=== PATIENT | male | born 1990 | race Caucasian/White ===

== ENCOUNTER 2016-11-29 00:44 | Emergency (ER) | payer OTHER ==
[2016-11-29 03:01] VITALS: BP 134/104; PULSE 75; TEMP 98; BMI 25.0
--- NOTE | 2016-11-29 06:42 | PDOC ---
History of Present Illness - General History Source: Patient Exam Limitations: No Limitations - History of Present Illness Initial Comments: 11/29/16 06:42 The patient is a 26-year-old male with no significant past medical history, and presents to the emergency department with non-productive cough for 3 weeks. He reports that the cough is worsening and is more severe before he goes to sleep. He states he has tried robitussin and home remedies with no relief, and allergy medications with minimal relief. He also reports mild nausea. The patient works in [employer]. The patient denies chest pain, shortness of breath, headache and dizziness. The patient denies fever, chills, nausea, vomit, diarrhea and constipation. The patient denies dysuria, frequency, urgency and hematuria. Allergies: shrimp, shellfish Past Surgical History: correction for deviated septum Social History: current smoker, occasional alcohol and drug use <Melissa Medrano - Last Filed: 11/29/16 06:42> <Nguyen Lauren - Last Filed: 12/01/16 02:48> - General Chief Complaint: Respiratory Stated Complaint: COUGH Time Seen by Provider: 11/29/16 03:16 Past History <Melissa Medrano - Last Filed: 11/29/16 06:42> - Past Medical History Anemia: No Asthma: No Cancer: No Cardiac Disorders: No CVA: No COPD: No CHF: No Dementia: No Diabetes: No GI Disorders: No Disorders: No HTN: No Hypercholesterolemia: No Liver Disease: No Seizures: No Thyroid Disease: No - Psycho/Social/Smoking Cessation Hx Anxiety: No Suicidal Ideation: No Smoking History: Current some day smoker Have you smoked in the past 12 months: Yes Number of Cigarettes Smoked Daily: 5 Information on smoking cessation initiated: No 'Breaking Loose' booklet given: 01/28/12 Hx Alcohol Use: Yes (occasionally) Drug/Substance Use Hx: Yes (occasionally PCP) Substance Use Type: Marijuana <Nguyen Lauren - Last Filed: 12/01/16 02:48> - Past Medical History Allergies/Adverse Reactions: Allergies Allergy/AdvReac Type Severity Reaction Status Date / Time shellfish derived Allergy Verified 11/29/16 02:43 shrimp Allergy Verified 11/29/16 02:43 Home Medications: Ambulatory Orders Prednisone [Deltasone -] 40 mg PO DAILY #10 tablet 11/29/16 Review of Systems - Review of Systems Able to Perform ROS?: Yes Comments:: 11/29/16 06:43 CONSTITUTIONAL: Absent: fever, chills, diaphoresis, generalized weakness, malaise, loss of appetite HEENT: Absent: rhinorrhea, nasal congestion, throat pain, throat swelling, difficulty swallowing, mouth swelling, ear pain, eye pain, visual changes CARDIOVASCULAR: Absent: chest pain, syncope, palpitations, irregular heart rate, lightheadedness , peripheral edema RESPIRATORY: Present: (+) cough Absent: shortness of breath, dyspnea with exertion, orthopnea, wheezing, stridor , hemoptysis GASTROINTESTINAL: Present: (+) nausea Absent: abdominal pain, abdominal distension, vomiting, diarrhea, constipation, melena, hematochezia GENITOURINARY: Absent: dysuria, frequency, urgency, hesitancy, hematuria, flank pain, genital pain MUSCULOSKELETAL: Absent: myalgia, arthralgia, joint swelling SKIN: Absent: rash, itching, pallor HEMATOLOGIC/IMMUNOLOGIC: Absent: easy bleeding, easy bruising, lymphadenopathy, frequent infections ENDOCRINE: Absent: unexplained weight gain, unexplained weight loss, heat intolerance, cold intolerance NEUROLOGIC: Absent: headache, focal weakness or paresthesias, dizziness, unsteady gait, seizure, mental status changes, bladder or bowel incontinence PSYCHIATRIC: Absent: anxiety, depression, suicidal or homicidal ideation, hallucinations. <Melissa Medrano - Last Filed: 11/29/16 06:42> *Physical Exam - Vital Signs Last Vital Signs Temp Pulse Resp BP Pulse Ox 98.0 F 75 18 134/104 99 11/29/16 02:38 11/29/16 02:38 11/29/16 02:38 11/29/16 02:38 11/29/16 02:38 - Physical Exam Comments: 11/29/16 06:43 CONSTITUTIONAL: Absent: fever, chills, diaphoresis, generalized weakness, malaise, loss of appetite HEENT: Absent: rhinorrhea, nasal congestion, throat pain, throat swelling, difficulty swallowing, mouth swelling, ear pain, eye pain, visual changes CARDIOVASCULAR: Absent: chest pain, syncope, palpitations, irregular heart rate, lightheadedness , peripheral edema RESPIRATORY: Present: (+) cough Absent: shortness of breath, dyspnea with exertion, orthopnea, wheezing, stridor , hemoptysis GASTROINTESTINAL: Present: (+) nausea Absent: abdominal pain, abdominal distension, vomiting, diarrhea, constipation, melena, hematochezia GENITOURINARY: Absent: dysuria, frequency, urgency, hesitancy, hematuria, flank pain, genital pain MUSCULOSKELETAL: Absent: myalgia, arthralgia, joint swelling SKIN: Absent: rash, itching, pallor HEMATOLOGIC/IMMUNOLOGIC: Absent: easy bleeding, easy bruising, lymphadenopathy, frequent infections ENDOCRINE: Absent: unexplained weight gain, unexplained weight loss, heat intolerance, cold intolerance NEUROLOGIC: Absent: headache, focal weakness or paresthesias, dizziness, unsteady gait, seizure, mental status changes, bladder or bowel incontinence PSYCHIATRIC: Absent: anxiety, depression, suicidal or homicidal ideation, hallucinations. <Melissa Medrano - Last Filed: 11/29/16 06:42> - Vital Signs Last Vital Signs Temp Pulse Resp BP Pulse Ox 98.0 F 75 18 134/104 99 11/29/16 02:38 11/29/16 02:38 11/29/16 02:38 11/29/16 02:38 11/29/16 02:38 <Nguyen Lauren - Last Filed: 12/01/16 02:48> ED Treatment Course - RADIOLOGY Radiology Studies Ordered: Category Date Time Status CHEST PA & LAT [RAD] Stat Radiology 11/29/16 03:54 Taken <Nguyen Lauren - Last Filed: 12/01/16 02:48> Medical Decision Making - Medical Decision Making 12/01/16 02:47 PT COMES WITH COUGH X 3 WEEKS. HE IS A [employer] MACHINE, AND STATES THAT THE POLLEN AND GRASS MUGHT BE CAUSING THE COUGH. HE HAS NO ASTHM,. HOWEVER I WILL TREAT WITH SOME PREDNISONE. HE IS TO FOLLOW WITH HIS PMD. EXAM IS NORMAL; HE HAS NO FEVER; NO WHEEZE; CXR IS NORMAL; VITALS ARE NORMAL <Nguyen Lauren - Last Filed: 12/01/16 02:48> *DC/Admit/Observation/Transfer - Attestations Scribe Attestion: 11/29/16 06:44 Documentation prepared by Melissa Medrano, acting as medical sociologist for Nguyen Lauren MD. <Melissa Medrano - Last Filed: 11/29/16 06:42> - Discharge Dispostion Admit: No <Nguyen Lauren - Last Filed: 12/01/16 02:48> Diagnosis at time of Disposition: Cough - Discharge Dispostion Disposition: HOME Condition at time of disposition: Stable - Prescriptions Prescriptions: Prednisone [Deltasone -] 40 mg PO DAILY #10 tablet - Referrals Referrals: Lesly Maloney MD [Primary Care Provider] - - Patient Instructions Printed Discharge Instructions: Cough
[2016-11-29] MEDS ORDERED: predniSONE 20 MG TABLET (UD) PO ONE (06:45)
[2016-11-29] MEDS ORDERED: predniSONE 20 MG TABLET (UD) ONE (06:46)
== END 2016-11-29 06:52 | disposition home or self-care (01) ==
LOC: JER 00:44
DX: R05 Cough (principal); F17.210 Nicotine dependence, cigarettes, uncomplicated
CPT/HCPCS: 71020-TC; 99282-25

== ENCOUNTER 2018-01-23 21:42 | Emergency (ER) | payer SELFPAY ==
[2018-01-23 21:54] VITALS: BP 153/61; PULSE 78; TEMP 97.9; BMI 25.6
[2018-01-23] MEDS ORDERED: DIPHTH,PERTUSS(ACELL),TET 0.5 ML DISP.SYRIN IM ONE (22:28)
--- NOTE | 2018-01-23 22:34 | PDOC ---
History of Present Illness - General Chief Complaint: Laceration Stated Complaint: WOUND Time Seen by Provider: 01/23/18 21:57 History Source: Patient - History of Present Illness Timing/Duration: reports: yesterday Location: reports: hands Past History - Past Medical History Allergies/Adverse Reactions: Allergies Allergy/AdvReac Type Severity Reaction Status Date / Time shellfish derived Allergy Verified 01/23/18 21:50 shrimp Allergy Verified 01/23/18 21:50 Home Medications: Ambulatory Orders NK [No Known Home Medication] 01/23/18 Anemia: No Asthma: No Cancer: No Cardiac Disorders: No CVA: No COPD: No CHF: No Dementia: No Diabetes: No GI Disorders: No Disorders: No HTN: No Hypercholesterolemia: No Liver Disease: No Seizures: No Thyroid Disease: No Other medical history: Pt denies - Immunization History Immunization Up to Date: No - Suicide/Smoking/Psychosocial Hx Smoking History: Never smoked Have you smoked in the past 12 months: Yes Number of Cigarettes Smoked Daily: 5 Information on smoking cessation initiated: No 'Breaking Loose' booklet given: 01/28/12 Hx Alcohol Use: No Drug/Substance Use Hx: No Substance Use Type: None, Marijuana Review of Systems - Review of Systems Constitutional: No: Chills, Fever *Physical Exam - Vital Signs Last Vital Signs Temp Pulse Resp BP Pulse Ox 97.9 F 78 20 153/61 99 01/23/18 21:51 01/23/18 21:51 01/23/18 21:51 01/23/18 21:51 01/23/18 21:51 - Physical Exam General Appearance: Yes: Appropriately Dressed. No: Apparent Distress HEENT: positive: Normal Voice Neck: positive: Supple Respiratory/Chest: negative: Respiratory Distress Integumentary: positive: Dry, Warm, Other (~1-1/2 cm superficial lac to distal aspect of mid L palm, near wrist, FROMI to fingers, NVI) Neurologic: positive: Fully Oriented, Alert, Normal Mood/Affect Procedures - Laceration/Wound Repair Left Hand Wound Length: to 2.5 cm Wound Explored: clean Wound's Depth, Shape: superficial Irrigated w/ Saline: Yes Betadine Prep: Yes Anesthesia: 1% Lidocaine (5) Wound Repaired With: Sutures Suture Size/Type: 5:0, nylon Number of Sutures: 7 Sterile Dressing Applied: Yes Medical Decision Making - Medical Decision Making 01/23/18 22:30 27 yo M, no sig hx, here w/ L palm laceration after handling broken bottle last night, no sensory changes. Needs tetanus See exam Lac repair to L palm No complications -lac repair -tetanus -wound check as needed in 2 days *DC/Admit/Observation/Transfer Diagnosis at time of Disposition: Laceration - Discharge Dispostion Disposition: HOME Condition at time of disposition: Good - Referrals - Patient Instructions Printed Discharge Instructions: DI for Laceration Repair Additional Instructions: Keep dressing in place for at least 24 hours after which one can be opened to air. You can gently cleaned wound with mild soap and water after 24 hours to prevent crusting over the suture knots. You can also apply an antibiotic ointment twice a day until sutures are removed. Return for redness, discharge or fever Sutures are removed in 7 days - Post Discharge Activity
== END 2018-01-23 22:51 | disposition home or self-care (01) ==
LOC: JERFT 21:42
PROC: 0HQGXZZ Repair Left Hand Skin, External Approach (ICD-10-PCS; principal; 2018-01-23)
PROC: 3E0234Z Introduction of Serum, Toxoid and Vaccine into Muscle, Percutaneous Approach (ICD-10-PCS; 2018-01-23)
DX: S61.412A Laceration without foreign body of left hand, initial encounter (principal); W25.XXXA Contact with sharp glass, initial encounter; Y93.89 Activity, other specified; Y92.89 Other specified places as the place of occurrence of the external cause; Y99.8 Other external cause status
CPT/HCPCS: 90715; 99281-25

== ENCOUNTER 2018-02-03 19:52 | Emergency (ER) | payer SELFPAY ==
--- NOTE | 2018-02-03 20:02 | PDOC ---
Rapid Medical Evaluation Time Seen by Provider: 02/03/18 20:01 Medical Evaluation: Allergies Allergy/AdvReac Type Severity Reaction Status Date / Time shellfish derived Allergy Verified 01/23/18 21:50 shrimp Allergy Verified 01/23/18 21:50 02/03/18 20:01 I have performed a brief in-person evaluation of this patient. The patient presents with a chief complaint of: left wrist suture removal Pertinent physical exam findings: 1 suture noted. Swelling to wound edges. No erythema present. No drainage present. I have ordered the following: nothing The patient will proceed to the ED for further evaluation. Discharge Disposition - Diagnosis Visit for suture removal - Referrals - Patient Instructions - Post Discharge Activity
[2018-02-03 20:15] VITALS: BP 155/82; PULSE 97; TEMP 97.4; BMI 56.8
--- NOTE | 2018-02-03 20:42 | PDOC ---
History of Present Illness - General Chief Complaint: Suture/Staple Removal(Here) Stated Complaint: SUTURE REMOVAL Time Seen by Provider: 02/03/18 20:01 - History of Present Illness Initial Comments: 27-year-old male presents for suture removal that was placed 11 days ago in his left wrist. He states in that time he was working and a hard piece of wood fell on the wound causing stitches to open up and come out he's had no other issues since then. He has mild discomfort in the area of the wound. 02/03/18 20:38 Past History - Past Medical History Allergies/Adverse Reactions: Allergies Allergy/AdvReac Type Severity Reaction Status Date / Time shellfish derived Allergy Verified 01/23/18 21:50 shrimp Allergy Verified 01/23/18 21:50 Home Medications: Ambulatory Orders Cephalexin [Keflex] 500 mg PO QID #40 capsule 02/03/18 Anemia: No Asthma: No Cancer: No Cardiac Disorders: No CVA: No COPD: No CHF: No DVT: No Dementia: No Diabetes: No GI Disorders: No Disorders: No HTN: No Hypercholesterolemia: No Liver Disease: No Seizures: No Thyroid Disease: No - Immunization History Immunization Up to Date: No - Suicide/Smoking/Psychosocial Hx Smoking History: Never smoked Have you smoked in the past 12 months: Yes Number of Cigarettes Smoked Daily: 5 'Breaking Loose' booklet given: 01/28/12 Hx Alcohol Use: No Drug/Substance Use Hx: No Substance Use Type: None, Marijuana Review of Systems - Review of Systems Musculoskeletal: Yes: See HPI All Other Systems: Reviewed and Negative *Physical Exam - Vital Signs Last Vital Signs Temp Pulse Resp BP Pulse Ox 97.4 F L 97 H 20 155/82 100 02/03/18 20:06 02/03/18 20:06 02/03/18 20:06 02/03/18 20:06 02/03/18 20:06 - Physical Exam Comments: The edges of the wound are not fully approximated due to the stitches coming out I do not visualize a stitch. There is some's localized swelling to the area with normal surrounding skin color and temperature I do not appreciate any fluctuance or gross sensorimotor deficits. 02/03/18 20:39 Medical Decision Making - Medical Decision Making I do not believe he has an infection or retained suture however I will place him on Keflex for prophylaxis because the wound has been open and have him follow-up with hand surgery for further evaluation and treatment options 02/03/18 20:40 *DC/Admit/Observation/Transfer Diagnosis at time of Disposition: Suture, burst Diagnosis at time of Disposition: (Ruled Out): Visit for suture removal - Discharge Dispostion Disposition: HOME Condition at time of disposition: Stable Decision to Admit order: No - Referrals Referrals: Mitul Lubin MD [Staff Physician] - - Patient Instructions Additional Instructions: Keep the area clean with soap and water multiple times a day and open to air he may cover it with dry sterile gauze if you are working. Return to the emergency room should her symptoms worsen or go unresolved. In the meantime I recommend that he follow-up with hand surgery for further evaluation and treatment options. I've given you a prescription for a prophylactic dose of antibiotics in case there is a retained suture or you develop an infection. - Post Discharge Activity
== END 2018-02-03 20:44 | disposition home or self-care (01) ==
LOC: JERFT 19:52
DX: Z48.02 Encounter for removal of sutures (principal)
CPT/HCPCS: 99281-25

== ENCOUNTER 2019-09-21 16:15 | Emergency (ER) | payer OTHER ==
[2019-09-21 16:35] VITALS: BP 153/95; PULSE 83; TEMP 98.5; BMI 26.6
[2019-09-21] MEDS ORDERED: CYCLOBENZAPRINE HCL 10 MG TABLET (FP) PO ONE (16:35)
[2019-09-21] MEDS ORDERED: KETOROLAC TROMETHAMINE 60 MG/2 ML VIAL IM ONE (16:35)
--- NOTE | 2019-09-21 16:35 | PDOC ---
Rapid Medical Evaluation Chief Complaint: Back Pain Time Seen by Provider: 09/21/19 16:32 Medical Evaluation: Allergies Allergy/AdvReac Type Severity Reaction Status Date / Time shellfish derived Allergy Verified 09/21/19 16:25 shrimp Allergy Verified 09/21/19 16:25 09/21/19 16:33 Pt c/o : neck and back pain x 2 days after waking up, took motrin last night with good effect Pt on brief exam: no vertebral tenderness, mgiuel trap tenderness at cervical level , unable to perform FROm due to discomfort Pt ordered for : toradol and flexeril Pt to proceed to the ED Discharge Disposition - Diagnosis Neck pain - Referrals - Patient Instructions - Post Discharge Activity
[2019-09-21] MEDS ORDERED: CYCLOBENZAPRINE HCL 10 MG TABLET (FP) ONE (17:06)
[2019-09-21] MEDS ORDERED: KETOROLAC TROMETHAMINE 60 MG/2 ML VIAL ONE (17:06)
--- NOTE | 2019-09-21 17:14 | PDOC ---
History of Present Illness - General Chief Complaint: Back Pain Stated Complaint: BACK PAIN Time Seen by Provider: 09/21/19 16:32 History Source: Patient - History of Present Illness Occurred: reports: other Pain Location: reports: back Past History - Past Medical History Allergies/Adverse Reactions: Allergies Allergy/AdvReac Type Severity Reaction Status Date / Time shellfish derived Allergy Verified 09/21/19 16:25 shrimp Allergy Verified 09/21/19 16:25 Home Medications: Ambulatory Orders Ibuprofen [Motrin -] 800 mg PO Q6H #30 tablet 09/21/19 Anemia: No Asthma: No Cancer: No Cardiac Disorders: No CVA: No COPD: No CHF: No DVT: No Dementia: No Diabetes: No GI Disorders: No Disorders: No HTN: No Hypercholesterolemia: No Liver Disease: No Seizures: No Thyroid Disease: No - Immunization History Immunization Up to Date: No - Psycho Social/Smoking Cessation Hx Smoking History: Never smoked Have you smoked in the past 12 months: No Number of Cigarettes Smoked Daily: 5 Information on smoking cessation initiated: No 'Breaking Loose' booklet given: 01/28/12 Hx Alcohol Use: No Drug/Substance Use Hx: No Substance Use Type: None, Marijuana Review of Systems - Review of Systems Constitutional: No: Chills, Fever Respiratory: No: Shortness of Breath Cardiac (ROS): No: Chest Pain, Palpitations Musculoskeletal: Yes: Back Pain. No: Neck Pain Neurological: No: Numbness, Tingling, Weakness *Physical Exam - Vital Signs Last Vital Signs Temp Pulse Resp BP Pulse Ox 98.5 F 83 18 153/95 97 09/21/19 16:31 09/21/19 16:31 09/21/19 16:31 09/21/19 16:31 09/21/19 16:31 - Physical Exam General Appearance: Yes: Appropriately Dressed. No: Apparent Distress HEENT: positive: Normal Voice Neck: positive: Supple Respiratory/Chest: positive: Lungs Clear, Normal Breath Sounds. negative: Respiratory Distress Cardiovascular: positive: Regular Rate, S1, S2 Musculoskeletal: positive: Vertebral Tenderness (to mid upper back). negative: CVA Tenderness Integumentary: positive: Dry, Warm Neurologic: positive: Fully Oriented, Alert, Normal Mood/Affect ED Treatment Course - RADIOLOGY Radiology Studies Ordered: Category Date Time Status SPINE-THORACIC [RAD] Stat Radiology 09/21/19 17:11 Ordered Medical Decision Making - Medical Decision Making 09/21/19 17:57 29-year-old male no significant history, here with mid upper back pain x several days that worsened after he states he asked a female individual to walk on his back. Taking Tylenol with minimal relief. No sensory changes. No chest pain shortness of breath or palpitations. see exam M/l MSK upper back pain, PERCs out -XR neg for acute pathology -given pain meds in ED -dc w/ pain control Discharge - Discharge Information Problems reviewed: Yes Clinical Impression/Diagnosis: Thoracic back pain Qualifiers: Chronicity: acute Back pain laterality: midline Qualified Code(s): M54.6 - Pain in thoracic spine Condition: Good Disposition: HOME - Additional Discharge Information Prescriptions: Ibuprofen [Motrin -] 800 mg PO Q6H #30 tablet - Follow up/Referral Referrals: Letty Chaudhary [Primary Care Provider] - - Patient Discharge Instructions Patient Printed Discharge Instructions: DI for Thoracic Back Pain - Post Discharge Activity
== END 2019-09-21 18:02 | disposition home or self-care (01) ==
LOC: JERFT 16:15
PROC: 3E0233Z Introduction of Anti-inflammatory into Muscle, Percutaneous Approach (ICD-10-PCS; principal; 2019-09-21)
DX: M54.6 Pain in thoracic spine (principal)
CPT/HCPCS: 72070-TC-FY; 96372; 99284-25

== ENCOUNTER 2020-12-09 20:02 | Emergency (ER) | payer OTHER ==
[2020-12-09 20:10] VITALS: BP 132/81; PULSE 88; TEMP 98.6; BMI 26.6
[2020-12-09] MEDS ORDERED: DIPHTH,PERTUSS(ACELL),TET 0.5 ML DISP.SYRIN IM ONE ×2 (20:17→20:21)
[2020-12-09] MEDS ORDERED: BACITRACIN 15 GM TUBE TOPICAL OINTMENT ONE (20:21)
== END 2020-12-09 20:45 | disposition home or self-care (01) ==
LOC: JERFT 20:02
PROC: 3E0234Z Introduction of Serum, Toxoid and Vaccine into Muscle, Percutaneous Approach (ICD-10-PCS; principal; 2020-12-09)
DX: S51.811A Laceration without foreign body of right forearm, initial encounter (principal)
CPT/HCPCS: 90471; 90715; 99284-25

== ENCOUNTER 2021-08-02 04:08 | Emergency (ER) | payer OTHER ==
[2021-08-02 04:58] VITALS: BP 160/93; PULSE 92; TEMP 98.9; BMI 27.4
[2021-08-02] MEDS ORDERED: ACETAMINOPHEN 500 MG TABLET (FP) PO ONE (05:03)
[2021-08-02] MEDS ORDERED: ACETAMINOPHEN 325 MG TABLET (FP) ONE (05:10)
== END 2021-08-02 06:43 | disposition home or self-care (01) ==
LOC: JER 04:08
DX: S50.11XA Contusion of right forearm, initial encounter (principal); Y04.0XXA Assault by unarmed brawl or fight, initial encounter
CPT/HCPCS: 70450-TC; 70486-TC; 99284-25

== ENCOUNTER 2021-10-08 20:21 | Emergency (ER) | payer OTHER ==
[2021-10-08 20:30] VITALS: BP 137/80; PULSE 80; TEMP 98.9; BMI 25.7
[2021-10-08] MEDS ORDERED: KETOROLAC TROMETHAMINE 30 MG/1 ML VIAL IM ONE (20:41)
[2021-10-08] MEDS ORDERED: DIPHTH,PERTUSS(ACELL),TET 0.5 ML DISP.SYRIN IM ONE ×2 (20:45→21:01)
[2021-10-08] MEDS ORDERED: KETOROLAC TROMETHAMINE 30 MG/1 ML VIAL ONE (21:00)
== END 2021-10-08 21:31 | disposition home or self-care (01) ==
LOC: JERFT 20:21
PROC: 3E0234Z Introduction of Serum, Toxoid and Vaccine into Muscle, Percutaneous Approach (ICD-10-PCS; principal; 2021-10-08)
PROC: 3E0233Z Introduction of Anti-inflammatory into Muscle, Percutaneous Approach (ICD-10-PCS; 2021-10-08)
DX: L03.115 Cellulitis of right lower limb (principal)
CPT/HCPCS: 73562-TC-RT-FY; 90471; 90715; 96372; 99284-25

== ENCOUNTER 2022-08-07 10:16 | Emergency (ER) | payer OTHER ==
[2022-08-07 10:28] VITALS: BP 150/81; PULSE 71; RESP 18; TEMP 98.5; BMI 23.3
[2022-08-07] MEDS ORDERED: DIPHTH,PERTUSS(ACELL),TET 0.5 ML DISP.SYRIN IM ONE ×2 (11:29→11:49)
== END 2022-08-07 11:52 | disposition home or self-care (01) ==
LOC: JERFT 10:16
PROC: 3E0234Z Introduction of Serum, Toxoid and Vaccine into Muscle, Percutaneous Approach (ICD-10-PCS; principal; 2022-08-07)
DX: S00.81XA Abrasion of other part of head, initial encounter (principal); Y04.8XXA Assault by other bodily force, initial encounter
CPT/HCPCS: 90471; 90715; 99283-25